=== PATIENT | female | born 1990 | race Caucasian/White ===

== ENCOUNTER 2023-10-24 10:19 | Outpatient (CLI) | payer BC | END 2023-10-24 10:20 | disposition home or self-care (01) | LOC: RAD 10:19 | PROVIDERS: ATTEND Physician Assistant | DX: R13.12 Dysphagia, oropharyngeal phase (principal); R63.30 Feeding difficulties, unspecified | CPT/HCPCS: 74230 ==

== ENCOUNTER 2024-01-10 13:07 | Outpatient (CLI) | payer BC ==
[~2024-01-10 13:07] MED LIST: Magnevist 469MG/ML 20 ML VIAL ONE
== END 2024-01-10 13:08 | disposition home or self-care (01) ==
LOC: MRI 13:07
PROVIDERS: ATTEND Psychiatry & Neurology Neurology
DX: R13.12 Dysphagia, oropharyngeal phase (principal); R04.2 Hemoptysis; R59.0 Localized enlarged lymph nodes
CPT/HCPCS: 70553; 76376; A9579

== ENCOUNTER 2024-01-19 11:25 | Outpatient (CLI) | payer BC | END 2024-01-19 11:26 | disposition home or self-care (01) | LOC: SCSMRI 11:25 | PROVIDERS: ATTEND Psychiatry & Neurology Neurology | DX: R13.10 Dysphagia, unspecified (principal) | CPT/HCPCS: 72156 ==